=== PATIENT | male | born 1980 | race African-American/Black ===

== ENCOUNTER 2024-04-13 08:17 | Emergency (ER) | payer MEDICAID, OTHER ==
[~2024-04-13] VITALS: Ht 165.1 cm; Wt 66.8 kg
[2024-04-13 08:57] VITALS: TEMP 97.9
[2024-04-13] MEDS: KETOROLAC TROMETH 30 MG/ML 1ML VIAL IV ONE (09:45)
[2024-04-13] MEDS: MORPHINE SULFATE 4 MG/ML SYR/VIAL IV ONE (09:45)
[2024-04-13] MEDS: SODIUM CHLORIDE 0.9% 1,000 ML IV ONE (12:00)
[2024-04-13] MEDS: methylPREDNISolone SOD SUCC 125 MG/2 ML VL IV ONE (12:09)
[2024-04-13 12:39] VITALS: BP 146/64; PULSE 70; RESP 16; O2SAT 96
[2024-04-13] MEDS ORDERED: IBUP1TAB5 PO (12:44)
== END 2024-04-13 12:45 | disposition home or self-care (01) ==
LOC: ER 08:17
DX: S02.609A Fracture of mandible, unspecified, initial encounter for closed fracture (principal); S62.231A Other displaced fracture of base of first metacarpal bone, right hand, initial encounter for closed fracture; W18.09XA Striking against other object with subsequent fall, initial encounter; Y93.61 Activity, american tackle football; Y92.89 Other specified places as the place of occurrence of the external cause; Y99.8 Other external cause status
CPT/HCPCS: 29125; 70486; 73130; 96361; 96374; 99285; J1885; J2270; J2919; J7030